=== PATIENT | female | born 2000 | race Caucasian/White ===

== ENCOUNTER 2021-08-27 08:08 | Inpatient (IN) | payer BC ==
[2021-08-27] MEDS ORDERED: Acetaminophen 500 MG TAB ONE (08:47)
[2021-08-27 09:11] LABS: Hemoglobin 13.5 g/dL (12.0-16.0); Mean Corpuscular HGB CONC 33.4 g/dL (32.0-36.0); Mean Corpuscular Hemoglobin 29.6 pg (25.0-35.0); Mean Corpuscular Volume 88.5 fL (78.0-98.0); RBC Distribution Width 11.6 % (11.5-14.5); Red Blood Cell (RBC) Count 4.55 mill/uL (4.00-5.20); White Blood Cell (WBC) Count 4.9 thou/uL (4.8-10.8)
[2021-08-27 09:30] LABS: Band 29 % (5-11); Lymphocytes 25 % (28-48); MDiff Complete? YES; Mean Platelet Volume 8.1 fL (7.4-10.4); Monocytes 4 % (0-4); Neutrophil 33 % (31-61); Platelet Count 96 thou/uL (130-400); Platelet Morphology Comment Appears Decreased; RBC Morphology Normal; Reactive Lymphocytes 9 % (0-10)
[2021-08-27 09:32] LABS: ALT (SGPT) 205 U/L (8-55); AST (SGOT) 249 U/L (5-30); Albumin 3.9 g/dL (3.5-5.0); Alkaline Phosphatase 74 U/L (40-100); Anion Gap 14 mmol/L (10-20); BUN (Urea Nitrogen) 8 mg/dL (8.4-21.0); Bilirubin, Total 0.5 mg/dL (0.2-1.2); Calc. Creatinine Clearance 0 mL/min (70-130); Carbon Dioxide 21 mmol/L (22-29); Chloride 100 mmol/L (98-107); Globulin 3.3 g/dL (2.4-3.5); Glucose 93 mg/dL (70-105); Potassium 3.9 mmol/L (3.5-5.1); Protein, Total 7.2 g/dL (6.0-8.3); Sodium 131 mmol/L (136-145)
[2021-08-27 09:34] LABS: SARS-CoV-2 NAA Rapid Test Not Detected (NotDetected)
[2021-08-27] MEDS ORDERED: Ketorolac Tromethamine 30 MG/ML VIAL ONE (10:18)
[2021-08-27] MEDS ORDERED: Ondansetron PF 4 MG/2 ML Vial ONE (10:18)
[2021-08-27 10:57] LABS: BHCG - Serum Negative (NEGATIVE)
[2021-08-27 10:58] LABS: Pregs Control Background? CLEAR/WHITE (CLR/WHITE); Pregs Control Bar Appear? YES (CONTROL BAR)
[2021-08-27 11:19] LABS: MONO NEGATIVE CONTROL ZONE White (Negative) (White); MONO POSITIVE CONTROL Pink Line (Positive) (PINK/RED); Mononucleosis NEGATIVE (NEGATIVE)
[2021-08-27] MEDS ORDERED: Enoxaparin Sodium 40 MG/0.4 ML SYRINGE SC SCH (12:45)
[2021-08-27 13:18] LABS: HBCM Index 0.17 S/CO (0-0.79); HBSAg Index 0.19 S/CO (0-0.99); Hep A IgM AB Non-Reactive (NonReactive); Hep A IgM S/CO 0.35 S/CO (0-0.79); Hep B Surf Ag Non-Reactive S/CO (NonReactive); Hep C IgG Ab Non-Reactive (NonReactive); Hep C Index 0.09 S/CO (0-0.79); Hepatitis B Core IgM Abs Non-Reactive (NonReactive)
[2021-08-27] MEDS: cefTRIAXone\\ROCEPHIN 1 GM in Sodium Chloride 0.9% 100 ML IVPB SCH (14:49)
[2021-08-27] MEDS: Lactated Ringer's 1,000 ML IV SCH (14:50)
[2021-08-27] MEDS: Acetaminophen 325 MG TAB PO PRN (14:50)
[2021-08-27 15:55] VITALS: BMI 21.9
[2021-08-27] MEDS: Doxycycline 100 MG in Sodium Chloride 0.9% 100 ML IVPB SCH (17:29)
[2021-08-27 18:39] LABS: Syphilis Antibody Nonreactive (Nonreactive); Syphilis Antibody Index 0.05 S/CO (<1.00 Non-Reactive)
[2021-08-27] MEDS: Ondansetron PF 4 MG/2 ML Vial IVP PRN (20:26)
[2021-08-27] MEDS: Fioricet 325/50/40 mg Tablet PO PRN (20:29)
[2021-08-27] MEDS: Famotidine 20 MG TAB PO SCH (20:59)
[2021-08-27 22:39] LABS: Bilirubin Negative (Negative); Blood, Urine Negative (Negative); Clarity Clear (Clear); Glucose, Urine (Dipstick) Normal (Negative); Ketone, Urine Negative (Negative); Leukocyte Negative Leu/uL (Negative); Nitrite Negative (Negative); Protein, Urine (Dipstick) 20 mg/dL (Neg-Trace); RBC/HPF 0-3 HPF (0-3); Specific Gravity, Urine 1.019 (1.002-1.036); Squamous Epithelial 0-3 HPF (0-3); WBC/HPF 0-3 HPF (0-3)
[2021-08-27 22:42] LABS: Bacteria/HPF 1+ HPF (None Seen)
[2021-08-27 22:45] LABS: Amphetamine Not Detected (NotDetected); Barbiturates Screen Detected (NotDetected); Benzodiazepine Screen Not Detected (NotDetected); Cocaine Metabolite Screen Not Detected (NotDetected); Methadone Not Detected (NotDetected); Methamphetamine Not Detected (NotDetected); Opiate Screen Not Detected (NotDetected); Oxycodone Screen Not Detected (NotDetected); Phencyclidine (PCP) Not Detected (NotDetected); THC/Cannabinoid Screen Detected (NotDetected); Tricyclic Screen Not Detected (NotDetected)
[2021-08-28] MEDS ORDERED: Morphine 4 MG/ML VIAL SLOW IVP SCH (01:45)
[2021-08-28] MEDS: Doxycycline 100 MG in Sodium Chloride 0.9% 100 ML IVPB SCH ×2 (03:36→15:31)
[2021-08-28] MEDS: Lactated Ringer's 1,000 ML IV SCH (03:37)
[2021-08-28] MEDS: Fioricet 325/50/40 mg Tablet PO PRN ×4 (05:49→21:44)
[2021-08-28 06:27] LABS: Hemoglobin 11.5 g/dL (12.0-16.0); Mean Corpuscular HGB CONC 32.9 g/dL (32.0-36.0); Mean Corpuscular Hemoglobin 29.4 pg (25.0-35.0); Mean Corpuscular Volume 89.5 fL (78.0-98.0); Mean Platelet Volume 8.2 fL (7.4-10.4); Platelet Count 85 thou/uL (130-400); RBC Distribution Width 11.6 % (11.5-14.5); Red Blood Cell (RBC) Count 3.91 mill/uL (4.00-5.20); White Blood Cell (WBC) Count 3.8 thou/uL (4.8-10.8)
[2021-08-28 06:47] LABS: ALT (SGPT) 419 U/L (8-55); AST (SGOT) 530 U/L (5-30); Albumin 3.1 g/dL (3.5-5.0); Alkaline Phosphatase 98 U/L (40-100); Anion Gap 10 mmol/L (10-20); BUN (Urea Nitrogen) 5 mg/dL (8.4-21.0); Bilirubin, Total 0.4 mg/dL (0.2-1.2); Calc. Creatinine Clearance 118 mL/min (70-130); Calcium 8.2 mg/dL (7.8-10.44); Carbon Dioxide 21 mmol/L (22-29); Chloride 105 mmol/L (98-107); Globulin 2.6 g/dL (2.4-3.5); Glucose 83 mg/dL (70-105); Potassium 3.8 mmol/L (3.5-5.1); Protein, Total 5.7 g/dL (6.0-8.3); Sodium 132 mmol/L (136-145)
[2021-08-28 07:24] LABS: Band 35 % (5-11); Lymphocytes 21 % (28-48); MDiff Complete? YES; Monocytes 10 % (0-4); Neutrophil 14 % (31-61); Platelet Morphology Comment Appears Decreased; RBC Morphology Normal; Reactive Lymphocytes 20 % (0-10)
[2021-08-28] MEDS: Famotidine 20 MG TAB PO SCH ×2 (08:38→20:49)
[2021-08-28] MEDS: Acetaminophen 325 MG TAB PO PRN (08:39)
[2021-08-28 08:56] LABS: Platelet Count 84 thou/uL (130-400)
[2021-08-28 08:57] LABS: Fibrinogen 395 mg/dL (253-463); INR-International Normal Ratio 1.1; Prothrombin Time 14.1 sec (12.0-14.7)
[2021-08-28 08:58] LABS: D-Dimer Test 3.48 *mcg/mL (0.27-0.43); PTT 35.1 sec (22.9-36.1)
[2021-08-28] MEDS ORDERED: Enoxaparin Sodium 40 MG/0.4 ML SYRINGE SC SCH (09:00)
[2021-08-28 09:17] LABS: HIV (1/2) Antibody/Antigen Non-Reactive (NonReactive); HIV 1/2 INDEX 0.15 S/CO (<1.00)
[2021-08-28 11:13] LABS: % Infected Cells W/Parasite No parasites seen
[2021-08-28] MEDS ORDERED: Magnevist 469MG/ML 20 ML VIAL ONE (13:28)
[2021-08-28] MEDS ORDERED: Iopamidol-370 76% 500 ML 1 ML ONE (13:31)
[2021-08-28] MEDS: cefTRIAXone\\ROCEPHIN 1 GM in Sodium Chloride 0.9% 100 ML IVPB SCH (14:24)
[2021-08-28] MEDS: Ondansetron PF 4 MG/2 ML Vial IVP PRN (18:02)
[2021-08-29] MEDS: Doxycycline 100 MG in Sodium Chloride 0.9% 100 ML IVPB SCH (03:21)
[2021-08-29] MEDS: Acetaminophen 325 MG TAB PO PRN (03:32)
[2021-08-29] MEDS: Ondansetron PF 4 MG/2 ML Vial IVP PRN ×2 (03:32→16:43)
[2021-08-29] MEDS: Fioricet 325/50/40 mg Tablet PO PRN ×2 (03:32→20:37)
[2021-08-29] MEDS: Famotidine 20 MG TAB PO SCH ×2 (08:04→20:21)
[2021-08-29] MEDS: Sodium Chloride 0.9% 1,000 ML IV SCH (08:08)
[2021-08-29 13:01] LABS: SARS-CoV-2 IgG Spike Ab Interp Reactive (NonReactive); SARS-CoV-2 IgG Spike Conc/Indx 1077.5 AU/mL (0.00-50.0)
[2021-08-29] MEDS: cefTRIAXone\\ROCEPHIN 1 GM in Sodium Chloride 0.9% 100 ML IVPB SCH (13:52)
[2021-08-29 14:05] LABS: ALT (SGPT) 997 U/L (8-55); AST (SGOT) 1189 U/L (5-30); Albumin 3.6 g/dL (3.5-5.0); Alkaline Phosphatase 194 U/L (40-100); Anion Gap 16 mmol/L (10-20); BUN (Urea Nitrogen) 6 mg/dL (8.4-21.0); Bilirubin, Total 1.1 mg/dL (0.2-1.2); Calc. Creatinine Clearance 104 mL/min (70-130); Calcium 9.2 mg/dL (7.8-10.44); Carbon Dioxide 22 mmol/L (22-29); Chloride 103 mmol/L (98-107); Globulin 3.3 g/dL (2.4-3.5); Glucose 65 mg/dL (70-105); Potassium 3.9 mmol/L (3.5-5.1); Protein, Total 6.9 g/dL (6.0-8.3); Sodium 137 mmol/L (136-145)
[2021-08-29 14:28] LABS: Band 21 % (5-11); Hemoglobin 12.7 g/dL (12.0-16.0); Lymphocytes 30 % (28-48); MDiff Complete? YES; Mean Corpuscular HGB CONC 33.9 g/dL (32.0-36.0); Mean Corpuscular Hemoglobin 30.3 pg (25.0-35.0); Mean Corpuscular Volume 89.4 fL (78.0-98.0); Mean Platelet Volume 8.5 fL (7.4-10.4); Monocytes 12 % (0-4); Neutrophil 14 % (31-61); Platelet Count 105 thou/uL (130-400); Platelet Morphology Comment Appears Decreased; RBC Distribution Width 11.9 % (11.5-14.5); RBC Morphology Normal; Reactive Lymphocytes 22 % (0-10); Red Blood Cell (RBC) Count 4.18 mill/uL (4.00-5.20); White Blood Cell (WBC) Count 7.7 thou/uL (4.8-10.8)
[2021-08-29] MEDS: Doxycycline 100 MG CAP PO SCH (20:20)
[2021-08-30] MEDS: Sodium Chloride 0.9% 1,000 ML IV SCH ×2 (03:15→15:35)
[2021-08-30 06:40] LABS: Prothrombin Time 13.7 sec (12.0-14.7)
[2021-08-30 06:41] LABS: PTT 35.8 sec (22.9-36.1)
[2021-08-30 06:54] LABS: ALT (SGPT) 1109 U/L (8-55); AST (SGOT) 1019 U/L (5-30); Albumin 3.1 g/dL (3.5-5.0); Alkaline Phosphatase 246 U/L (40-100); Anion Gap 15 mmol/L (10-20); BUN (Urea Nitrogen) 4 mg/dL (8.4-21.0); Calc. Creatinine Clearance 105 mL/min (70-130); Calcium 8.3 mg/dL (7.8-10.44); Carbon Dioxide 21 mmol/L (22-29); Chloride 102 mmol/L (98-107); Globulin 2.9 g/dL (2.4-3.5); Glucose 98 mg/dL (70-105); Potassium 3.7 mmol/L (3.5-5.1); Sodium 134 mmol/L (136-145)
[2021-08-30 08:18] LABS: Band 14 % (5-11); Hemoglobin 11.6 g/dL (12.0-16.0); Lymphocytes 54 % (28-48); MDiff Complete? YES; Mean Corpuscular HGB CONC 34.8 g/dL (32.0-36.0); Mean Corpuscular Hemoglobin 30.4 pg (25.0-35.0); Mean Corpuscular Volume 87.6 fL (78.0-98.0); Mean Platelet Volume 8.4 fL (7.4-10.4); Metamyelocyte 1 % (0-0); Monocytes 5 % (0-4); Neutrophil 25 % (31-61); Platelet Count 124 thou/uL (130-400); Platelet Morphology Comment Appears Decreased; RBC Distribution Width 11.8 % (11.5-14.5); RBC Morphology Normal; Red Blood Cell (RBC) Count 3.82 mill/uL (4.00-5.20)
[2021-08-30] MEDS: Famotidine 20 MG TAB PO SCH ×2 (08:38→21:02)
[2021-08-30 08:39] LABS: Acetaminophen Less than 10.0 mcg/mL (10.0-30.0)
[2021-08-30] MEDS: Doxycycline 100 MG CAP PO SCH ×2 (08:39→21:02)
[2021-08-30 09:37] LABS: Haptoglobin 44 mg/dL (33-278)
[2021-08-30] MEDS: Ondansetron PF 4 MG/2 ML Vial IVP PRN (09:40)
[2021-08-30] MEDS: Fioricet 325/50/40 mg Tablet PO PRN (09:40)
[2021-08-30] MEDS: cefTRIAXone\\ROCEPHIN 1 GM in Sodium Chloride 0.9% 100 ML IVPB SCH (13:17)
[2021-08-30] MEDS: Acetaminophen 325 MG TAB PO PRN (17:30)
[2021-08-31 06:53] LABS: Mean Corpuscular HGB CONC 34.6 g/dL (32.0-36.0); Mean Corpuscular Hemoglobin 30.7 pg (25.0-35.0); Mean Corpuscular Volume 88.9 fL (78.0-98.0); Platelet Count 145 thou/uL (130-400); RBC Distribution Width 11.9 % (11.5-14.5); Red Blood Cell (RBC) Count 3.89 mill/uL (4.00-5.20); White Blood Cell (WBC) Count 9.7 thou/uL (4.8-10.8)
[2021-08-31 06:58] LABS: INR-International Normal Ratio 1.1; PTT 34.5 sec (22.9-36.1); Prothrombin Time 13.8 sec (12.0-14.7)
[2021-08-31 07:11] LABS: ALT (SGPT) 933 U/L (8-55); AST (SGOT) 645 U/L (5-30); Albumin 3.2 g/dL (3.5-5.0); Alkaline Phosphatase 344 U/L (40-100); Anion Gap 14 mmol/L (10-20); BUN (Urea Nitrogen) 5 mg/dL (8.4-21.0); Bilirubin, Total 1.1 mg/dL (0.2-1.2); Calc. Creatinine Clearance 113 mL/min (70-130); Calcium 8.5 mg/dL (7.8-10.44); Carbon Dioxide 21 mmol/L (22-29); Chloride 102 mmol/L (98-107); Glucose 77 mg/dL (70-105); Iron 40 ug/dL (50-170); Iron Binding Capacity, Total 343 mcg/dL (265-497); Potassium 3.8 mmol/L (3.5-5.1); Protein, Total 6.2 g/dL (6.0-8.3); Sodium 133 mmol/L (136-145)
[2021-08-31 07:24] LABS: Band 9 % (5-11); Lymphocytes 60 % (28-48); MDiff Complete? YES; Monocytes 7 % (0-4); Neutrophil 13 % (31-61); RBC Morphology Normal; Reactive Lymphocytes 11 % (0-10)
[2021-08-31] MEDS: Famotidine 20 MG TAB PO SCH ×2 (09:09→21:37)
[2021-08-31] MEDS: Doxycycline 100 MG CAP PO SCH (09:09)
[2021-08-31] MEDS: Fioricet 325/50/40 mg Tablet PO PRN ×2 (09:10→22:34)
[2021-08-31 09:42] LABS: EBV VCA IgM 68.9 U/mL (0.0-35.9); Nuclear AG IgG (EBNA) AB <18.0 U/mL (0.0-17.9)
[2021-08-31] MEDS ORDERED: cefTRIAXone\\ROCEPHIN 1 GM in Sodium Chloride 0.9% 100 ML IVPB SCH (14:00)
[2021-08-31 14:42] LABS: HIV-1 Quantitative, RNA PCR <20 copies/mL (.)
[2021-09-01 07:31] VITALS: BP 97/64; TEMP 98.6
[2021-09-01] MEDS: Famotidine 20 MG TAB PO SCH (07:51)
[2021-09-01 13:38] LABS: West Nile Virus IgG Ab - CSF Negative (Negative); West Nile Virus IgM Ab - CSF Negative (Negative)
[2021-09-02 06:14] LABS: CMV DNA-PCR Test Negative (Negative)
== END 2021-09-01 12:11 | disposition home or self-care (01) | DRG 866 ==
LOC: ERS 08:08 → T4-A 12:34 → OBSVTOIN 08-28 12:29
PROVIDERS: ADMIT Internal Medicine; ATTEND Internal Medicine
DX: B27.09 Gammaherpesviral mononucleosis with other complications (principal); E87.1 Hypo-osmolality and hyponatremia; B17.8 Other specified acute viral hepatitis; Z20.822 Contact with and (suspected) exposure to COVID-19; F41.9 Anxiety disorder, unspecified; F32.A Depression, unspecified; F17.290 Nicotine dependence, other tobacco product, uncomplicated; R74.01 Elevation of levels of liver transaminase levels; D69.6 Thrombocytopenia, unspecified; E86.9 Volume depletion, unspecified; G43.909 Migraine, unspecified, not intractable, without status migrainosus; Z90.89 Acquired absence of other organs; Z98.890 Other specified postprocedural states; Z79.899 Other long term (current) drug therapy; Z79.890 Hormone replacement therapy
CPT/HCPCS: 36415; 62270; 70450; 70553; 71260; 74177; 76705; 78227; 80048; 80053; 80074; 80143; 80306; 81001; 82103; 82104; 82390; 82550; 82945; 83010; 83516; 83540; 83550; 83615; 84145; 84157; 84703; 85025; 85049; 85060; 85300; 85362; 85379; 85384; 85610; 85730; 86015; 86038; 86140; 86225; 86308; 86664; 86665; 86720; 86769; 86780; 86788; 86789; 86794; 86850; 86880; 87040; 87070; 87205; 87207; 87389; 87497; 87529; 87536; 87633; 87798; 89051; 93306; 96374; 96375; 96376; 80307; A9537; A9579; G0378; J0696; J1200; J1885; J2270; J2405; J2765; J3490; J7050; J7120; Q9967

== ENCOUNTER 2022-07-01 17:51 | Emergency (ER) | payer BC | END 2022-07-01 20:43 | disposition home or self-care (01) | LOC: ERS 17:51 | DX: M25.531 Pain in right wrist (principal); M79.644 Pain in right finger(s); W19.XXXA Unspecified fall, initial encounter ==

== ENCOUNTER 2022-11-15 15:06 | Emergency (ER) | payer BC ==
[2022-11-15] MEDS ORDERED: prednisoLONE 10 MG ODT TAB ONE (16:34)
[2022-11-15] MEDS ORDERED: Ipratropium/Albuterol 3 ML NEB ONE (16:34)
== END 2022-11-15 18:05 | disposition home or self-care (01) ==
LOC: ERS 15:06
DX: J20.9 Acute bronchitis, unspecified (principal); R07.0 Pain in throat
CPT/HCPCS: 87081; 87430; 99283; J7620

== ENCOUNTER 2023-07-01 22:50 | Emergency (ER) | payer BC | END 2023-07-02 01:27 | disposition home or self-care (01) | LOC: ERS 22:50 | DX: J02.9 Acute pharyngitis, unspecified (principal) | CPT/HCPCS: 87081; 87430; 99283 ==

== ENCOUNTER 2023-09-29 19:32 | Emergency (ER) | payer BC ==
[2023-09-29] MEDS ORDERED: Lidocaine 1% w/Epinephrine 1:100K 20 ML VIAL ONE (21:12)
[2023-09-29] MEDS ORDERED: Bacitracin 1 PK ONE (21:43)
[2023-09-29] MEDS ORDERED: Ketorolac Tromethamine 30 MG (1 mL) VIAL ONE (21:43)
[2023-09-29] MEDS ORDERED: Boostrix 0.5 ML (Tdap) VIAL (>/=7 yrs of age) ONE (21:43)
== END 2023-09-29 22:28 | disposition home or self-care (01) ==
LOC: ERS 19:32
DX: S01.112A Laceration without foreign body of left eyelid and periocular area, initial encounter (principal); W45.8XXA Other foreign body or object entering through skin, initial encounter
CPT/HCPCS: 90471; 90715; 96372; J1885

== ENCOUNTER 2023-10-29 05:48 | Emergency (ER) | payer BC ==
[2023-10-29 06:49] LABS: #Basophils 0.03 10x3/uL (0.0-0.2); %Basophils 0.3 % (0.0-1.0); %Eosinophils 0.8 % (0.0-10.0); %Lymphocytes 36.8 % (21.0-51.0); %Monocytes 5.8 % (0.0-10.0); %Neutrophils 56.1 % (42.0-75.0); Hematocrit 36.6 % (36.0-47.0); Hemoglobin 12.7 g/dL (12.0-16.0); Mean Corpuscular HGB CONC 34.7 g/dL (32.0-36.0); Mean Corpuscular Volume 86.5 fL (78.0-98.0); Mean Platelet Volume 9.1 fL (7.4-10.4); Platelet Count 327 10x3/uL (130-400); RBC Distribution Width 13.2 % (11.5-14.5); Red Blood Cell (RBC) Count 4.23 mill/uL (4.20-5.40)
[2023-10-29 06:55] LABS: BHCG - Serum Negative (NEGATIVE); Pregs Control Background? CLEAR/WHITE (CLR/WHITE); Pregs Control Bar Appear? YES (CONTROL BAR)
[2023-10-29 07:02] LABS: ALT (SGPT) 13 U/L (8-55); AST (SGOT) 18 U/L (5-34); Albumin 3.9 g/dL (3.5-5.0); Alkaline Phosphatase 45 U/L (40-110); Anion Gap 18 mmol/L (10-20); BUN (Urea Nitrogen) 9 mg/dL (7.0-18.7); Bilirubin, Total 0.3 mg/dL (0.2-1.2); Calc. Creatinine Clearance 0 mL/min (70-130); Calcium 9.2 mg/dL (7.8-10.44); Carbon Dioxide 19 mmol/L (22-29); Chloride 110 mmol/L (98-107); Estimated GFR 111; Globulin 3.8 g/dL (2.4-3.5); Glucose 96 mg/dL (70-105); Lipase 27 U/L (8-78); Potassium 4.1 mmol/L (3.5-5.1); Protein, Total 7.7 g/dL (6.0-8.3); Sodium 143 mmol/L (136-145)
[2023-10-29 07:03] LABS: Acetaminophen Less than 10 mcg/mL (10.0-30.0); Alcohol 167.3 mg/dL (Less than 10); Salicylate Less than 8.0 mg/dL (15.0-30.0)
[2023-10-29 08:41] LABS: Amphetamine Not Detected (NotDetected); Barbiturates Screen Not Detected (NotDetected); Benzodiazepine Screen Not Detected (NotDetected); Cocaine Metabolite Screen Not Detected (NotDetected); Methadone Not Detected (NotDetected); Methamphetamine Not Detected (NotDetected); Opiate Screen Not Detected (NotDetected); Oxycodone Screen Not Detected (NotDetected); Phencyclidine (PCP) Not Detected (NotDetected); THC/Cannabinoid Screen Not Detected (NotDetected); Tricyclic Screen Not Detected (NotDetected)
[2023-10-29 08:49] LABS: Bacteria/HPF None Seen HPF (None Seen); Bilirubin Negative (Negative); Blood, Urine Trace (Negative); CAUTI Indications for Culture Alt mental st,lethar; Clarity Clear (Clear); Glucose, Urine (Dipstick) Normal (Negative); Ketone, Urine Negative (Negative); Leukocyte Negative Leu/uL (Negative); Nitrite Negative (Negative); Protein, Urine (Dipstick) Negative (Neg-Trace); RBC/HPF 0-3 HPF (0-3); Specific Gravity, Urine 1.022 (1.002-1.036); Squamous Epithelial 0-3 HPF (0-3); Urobilinogen Normal mg/dL (Less than 2); WBC/HPF 0-3 HPF (0-3); pH, Urine 6.5 (5.0-9.0)
[2023-10-29 08:52] LABS: Urine Culture Reflex No No
[2023-10-29] MEDS ORDERED: Ondansetron PF 4 MG/2 ML Vial ONE (09:16)
[2023-10-29 10:26] LABS: Acetaminophen Less than 10 mcg/mL (10.0-30.0); Salicylate Less than 8.0 mg/dL (15.0-30.0)
== END 2023-10-29 12:30 | disposition home or self-care (01) ==
LOC: ERS 05:48
DX: T45.0X1A Poisoning by antiallergic and antiemetic drugs, accidental (unintentional), initial encounter (principal); R00.0 Tachycardia, unspecified; F10.129 Alcohol abuse with intoxication, unspecified; Z55.6 Problems related to health literacy
CPT/HCPCS: 36415; 80053; 80306; 80307; 81001; 83690; 83735; 84443; 84703; 85025; 93005; 96361; 96374; J2405